=== PATIENT | female | born 1995 | race Caucasian/White ===

== ENCOUNTER 2020-12-10 14:03 | Outpatient (CLI) | payer OTHER ==
[~2020-12-10] VITALS: Ht 170.2 cm; Wt 84.0 kg
[2020-12-10 14:41] LABS: MICROSCOPIC INDICATED
== END 2020-12-10 15:40 | disposition home or self-care (01) ==
LOC: LDOP 14:03
PROVIDERS: ATTEND Obstetrics & Gynecology
DX: O46.92 Antepartum hemorrhage, unspecified, second trimester (principal); Z3A.24 24 weeks gestation of pregnancy
CPT/HCPCS: 76817; 81001; 87086; 99211; G0463

== ENCOUNTER → 2021-02-18 | Outpatient (CLI) | payer OTHER ==
[~2021-02-18] VITALS: Ht 170.2 cm; Wt 91.8 kg
[~2021-02-18] MED LIST: ACETAMINOPHEN 325 MG TABLET ONE; TERBUTALINE 1 MG/ML, 1ML ONE; TERBUTALINE 1 MG/ML, 1ML SQ ONE
[2021-02-18 11:40] VITALS: BP 113/63
[2021-02-18 11:48] LABS: MICROSCOPIC NOT IND
== END | disposition home or self-care (01) ==
LOC: LDOP 11:14
PROVIDERS: ATTEND Obstetrics & Gynecology
DX: O26.893 Other specified pregnancy related conditions, third trimester (principal); R10.9 Unspecified abdominal pain; Z3A.34 34 weeks gestation of pregnancy
CPT/HCPCS: 59025; 81003; 87086; 96372; J3105

== ENCOUNTER 2021-02-26 20:58 | Outpatient (CLI) | payer OTHER ==
[~2021-02-26] VITALS: Ht 170.2 cm; Wt 92.7 kg
[2021-02-26 21:36] LABS: MICROSCOPIC NOT IND
[2021-02-26 21:39] VITALS: BP 120/80
== END 2021-02-26 22:24 | disposition home or self-care (01) ==
LOC: LDOP 20:58
PROVIDERS: ATTEND Obstetrics & Gynecology
DX: O62.8 Other abnormalities of forces of labor (principal); Z3A.35 35 weeks gestation of pregnancy
CPT/HCPCS: 59025; 81003; 87086

== ENCOUNTER 2021-03-11 01:07 | Outpatient (CLI) | payer OTHER ==
[2021-03-11] MEDS ORDERED: PREN-59 PO (02:16)
[2021-03-11] MEDS ORDERED: MV-M1TAB16 PO (02:17)
[2021-03-11] MEDS ORDERED: MAGN100C3 PO (02:18)
[2021-03-11] MEDS ORDERED: ZINC220T2 PO (02:18)
[2021-03-11] MEDS ORDERED: CALC200T3 PO (02:19)
== END 2021-03-11 02:35 | disposition home or self-care (01) ==
LOC: LDOP 01:07
PROVIDERS: ATTEND Obstetrics & Gynecology
DX: O26.893 Other specified pregnancy related conditions, third trimester (principal); R10.9 Unspecified abdominal pain; Z3A.36 36 weeks gestation of pregnancy
CPT/HCPCS: 59025